=== PATIENT | male | born 1975 | race African-American/Black ===

== ENCOUNTER 2017-05-01 05:17 | Emergency (ER) | payer OTHER, SELFPAY ==
[2017-05-01] MEDS ORDERED: Bupivacaine 0.5% 10 ML VIAL ONE (05:48)
== END 2017-05-01 06:10 | disposition home or self-care (01) ==
LOC: NAV ERS 05:17
DX: K02.9 Dental caries, unspecified (principal); F17.210 Nicotine dependence, cigarettes, uncomplicated
CPT/HCPCS: 64400; J3490

== ENCOUNTER 2017-08-17 02:36 | Emergency (ER) | payer SELFPAY ==
[2017-08-17 02:59] LABS: Bilirubin Negative (Negative); Blood, Urine Trace (Negative); Clarity Clear (Clear); Glucose, Urine (Dipstick) Negative (Negative); Leukocyte Trace (Negative); Nitrite Negative (Negative); Protein, Urine (Dipstick) Negative (Neg-Trace); Specific Gravity, Urine 1.015 (1.005-1.030); Urobilinogen 0.2 mg/dL (0.2-1.0)
[2017-08-17 03:05] LABS: Bacteria/HPF Rare-Few HPF (None Seen); RBC/HPF 0-3 HPF (0-3); Squamous Epithelial 0-3 HPF (0-3)
[2017-08-17] MEDS ORDERED: Ibuprofen 800 MG TAB ONE (03:27)
[2017-08-17] MEDS ORDERED: Amoxicillin/Potassium Clav 875 MG TAB ONE (03:27)
[2017-08-17 22:32] LABS: Chlamydia by PCR DETECTED (NotDetected); GC by PCR Not Detected (NotDetected)
== END 2017-08-17 03:35 | disposition home or self-care (01) ==
LOC: NAV ERS 02:36
DX: K02.9 Dental caries, unspecified (principal); F17.210 Nicotine dependence, cigarettes, uncomplicated
CPT/HCPCS: 81001; 87086; 87491; 87591; 99283

== ENCOUNTER 2018-11-11 02:45 | Emergency (ER) | payer SELFPAY ==
[2018-11-11] MEDS ORDERED: Acetaminophen 500 MG TAB ONE (03:15)
[2018-11-11] MEDS ORDERED: Sulfameth/Trimethoprim DS 800-160mg TAB ONE (03:15)
== END 2018-11-11 03:25 | disposition home or self-care (01) ==
LOC: NAV ERS 02:45
DX: L02.214 Cutaneous abscess of groin (principal); F17.210 Nicotine dependence, cigarettes, uncomplicated; Z71.6 Tobacco abuse counseling
CPT/HCPCS: 99406